=== PATIENT | female | born 1980 | race Caucasian/White ===

== ENCOUNTER 2016-10-12 14:24 | Emergency (ER) | payer OTHER ==
[~2016-10-12] VITALS: Ht 162.6 cm; Wt 57.2 kg
[~2016-10-12 14:24] MED LIST: ABIL2TAB2 PO; LITH150C PO; SUBO2MIS SL; VIST25CA PO
[2016-10-12 14:35] VITALS: BP 119/81; PULSE 75; RESP 16; TEMP 98.3; O2SAT 98
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
[2016-10-12] MEDS ORDERED: VIST50CA PO (14:51)
[2016-10-12] MEDS ORDERED: LURA20TA PO (14:51)
[2016-10-12] MEDS ORDERED: ACETAMINOPHEN 500 MG CPLT PO ONE (15:00)
[2016-10-12] MEDS ORDERED: ONDANSETRON ODT 4 MG TAB PO ONE (15:00)
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
[2016-10-12] MEDS ORDERED: EXTR500C PO (16:35)
[2016-10-12] MEDS ORDERED: IBUP800T23 PO (16:35)
[2016-10-12] MEDS ORDERED: ORPH100T99 PO (16:35)
== END 2016-10-12 16:43 | disposition home or self-care (01) ==
LOC: PHEFT 14:24
DX: S16.1XXA Strain of muscle, fascia and tendon at neck level, initial encounter (principal); F31.9 Bipolar disorder, unspecified; F32.9 Major depressive disorder, single episode, unspecified; F17.210 Nicotine dependence, cigarettes, uncomplicated; F14.10 Cocaine abuse, uncomplicated; V43.52XA Car driver injured in collision with other type car in traffic accident, initial encounter
CPT/HCPCS: 70450; 72125; 84703

== ENCOUNTER 2017-03-03 11:31 | Emergency (ER) | payer SELFPAY ==
[~2017-03-03] VITALS: Ht 162.6 cm; Wt 57.0 kg
[~2017-03-03 11:31] MED LIST changes: -ABIL2TAB2 PO; +EXTR500C PO; +IBUP800T23 PO; +LURA20TA PO; +ORPH100T99 PO; -SUBO2MIS SL; -VIST25CA PO; +VIST50CA PO
[2017-03-03 11:35] VITALS: BP 136/96; PULSE 73; RESP 12; TEMP 98.7; O2SAT 98
--- NOTE | 2017-03-03 11:43 | PD ---
Physical Exam Date Seen by Provider: Mar 03, 2017 Time Seen by Provider: 11:40 Narrative 36 yo female here for evaluation of possible mites to the eyelashes. Per patient she was seen at [place] and told this. Given permethrin for scabies. Wants a second opinion. Has not seen dermatology. Vitals are stable in triage. Awaiting bed placement. Data Data Last Documented VS Vital Signs Date Time Temp Pulse Resp B/P (MAP) Pulse Ox O2 Delivery O2 Flow Rate FiO2 03/03/17 11:35 98.7 73 12 136/96 (109) 98 MDM Medical Record Reviewed: Yes Supervised Visit with SAHIL: No Taz Martinez Mar 03, 2017 11:43
--- NOTE | 2017-03-03 12:25 | PD ---
HPI Chief Complaint: Skin Problem Time Seen by Provider: 12:13 Travel History International Travel<30 days: No Contact w/Intl Traveler<30days: No Traveled to known affect area: No History of Present Illness HPI 36-year-old female presents the emergency department with reports of "skin mites", and seen recently at [facility] and given topical ointment for scabies. Patient states it did not seem to work. She states she took a hot Epsom salt bath last night "mites" in the water. She is convinced that the mites, when she puts makeup on her face. She denies any other symptoms. She has no known drug allergies. PFSH Past Medical History Bipolar Disorder: Yes Depression: Yes Diminished Hearing: No ?: Not LMP: 2 months Social History Alcohol Use: No Tobacco Use: Yes Substance Use: Yes (HX OF DILAUDID/COCAINE) Allergies-Medications (Allergen,Severity, Reaction): Coded Allergies: No Known Allergies (Unverified , 10/12/16) Reported Meds & Prescriptions Reported Meds & Active Scripts Active Ivermectin 3 Mg Tab 23 Mg PO ONCE Orphenadrine CR (Orphenadrine Citrate) 100 Mg Tab 100 Mg PO Q12HR Ibuprofen 800 Mg Tab 800 Mg PO Q8H PRN Acetaminophen Extra Strength (Acetaminophen) 500 Mg Cap 1,000 Mg PO Q6H PRN Reported Latuda (Lurasidone) 20 Mg Tab 20 Mg PO DAILY Vistaril (Hydroxyzine Pamoate) 50 Mg Cap 50 Mg PO HS [place] Carbonate 150 Mg Cap 150 Mg PO QID Review of Systems Except as stated in HPI: all other systems reviewed are Neg General / Constitutional: No: Fever Eyes: No: Visual changes HENT: No: Headaches Cardiovascular: No: Chest Pain or Discomfort Respiratory: No: Shortness of Breath Gastrointestinal: No: Abdominal Pain Genitourinary: No: Dysuria Musculoskeletal: No: Pain Skin: No Rash Neurologic: No: Weakness Psychiatric: No: Depression Endocrine: No: Polydipsia Hematologic/Lymphatic: No: Easy Bruising Physical Exam Narrative GENERAL: Anxious. No acute distress. SKIN: Warm and dry. Normal color. Normal turgor. No visual mites or excoriations. HEAD: Atraumatic. Normocephalic. EYES: Pupils equal and round. No scleral icterus. No injection or drainage. ENT: No nasal bleeding or discharge. Mucous membranes pink and moist. NECK: Trachea midline. Supple. No lymphadenopathy. CARDIOVASCULAR: Regular rate and rhythm. RESPIRATORY: No accessory muscle use. Clear to auscultation. Breath sounds equal bilaterally. MUSCULOSKELETAL: Extremities without clubbing, cyanosis, or edema. No obvious deformities. NEUROLOGICAL: Awake and alert. No obvious cranial nerve deficits. Motor grossly within normal limits. Five out of 5 muscle strength in the arms and legs. Normal speech. PSYCHIATRIC: Appropriate mood and affect; insight and judgment normal. Data Data Last Documented VS Vital Signs Date Time Temp Pulse Resp B/P (MAP) Pulse Ox O2 Delivery O2 Flow Rate FiO2 03/03/17 11:35 98.7 73 12 136/96 (109) 98 MDM Medical Decision Making Medical Screen Exam Complete: Yes Emergency Medical Condition: Yes Differential Diagnosis Body lice. Pediculosis. Scabies. Narrative Course No visible mites are noted on today's exam. Patient is given ivermectin tabs. She is to take 200 mg once. Patient to repeat in 7 days. Patient is to clean the house as discussed. Patient follow with primary care physician if symptoms do not improve or worsen. Diagnosis Primary Impression: Scabies infestation Referrals: [facility] Primary Care Physician Patient Instructions: General Instructions, Scabies (ED) Additional Instructions: No visible mites are noted on today's exam. Patient is given ivermectin tabs. She is to take 200 mg once. Patient to repeat in 7 days. Patient is to clean the house as discussed. Patient follow with primary care physician if symptoms do not improve or worsen. Med/Other Pt SpecificInfo: Prescription(s) given Scripts Ivermectin (Ivermectin) 3 Mg Tab 23 MG PO ONCE, #8 TAB 1 Refill Prov: Christoph Mars MD 03/03/17 Disposition: 01 DISCHARGE HOME Condition: Stable Ulices Hinkle Mar 03, 2017 12:25
[2017-03-03] MEDS ORDERED: IVER5TAB PO (12:30)
== END 2017-03-03 12:50 | disposition home or self-care (01) ==
LOC: NEPD 11:31
DX: B86 Scabies (principal); F31.9 Bipolar disorder, unspecified; Z72.0 Tobacco use; Z79.899 Other long term (current) drug therapy
CPT/HCPCS: 99283

== ENCOUNTER 2017-06-12 08:26 | Emergency (ER) | payer SELFPAY ==
[~2017-06-12] VITALS: Ht 162.6 cm; Wt 57.0 kg
[~2017-06-12 08:26] MED LIST changes: +IBUP1TAB7 PO; -IBUP800T23 PO; +IVER5TAB PO; +ORPH100T2 PO; -ORPH100T99 PO
[2017-06-12 08:29] VITALS: BP 168/97; PULSE 90; RESP 14; TEMP 97.7; O2SAT 98
[2017-06-12] MEDS ORDERED: IVER5TAB PO (08:51)
[2017-06-12] MEDS ORDERED: VIST50CA PO (08:51)
--- NOTE | 2017-06-12 08:54 | PD ---
HPI Chief Complaint: Skin Problem Time Seen by Provider: 08:44 Travel History International Travel<30 days: No Contact w/Intl Traveler<30days: No Traveled to known affect area: No History of Present Illness HPI 37-year-old female presents the emergency department with generalized pruritus and reports of skin mites. This been going on for several weeks. Patient has similar presentation in February seen by myself at that time. Time the patient was treated with ivermectin which she states worked well. She feels that there might to getting into her chimney in her house. Patient is convinced she can see these. She does have a history of bipolar disorder with history of hallucinations in the past. Patient has no other complaints. No known drug allergies. PFSH Past Medical History Bipolar Disorder: Yes Depression: Yes Diminished Hearing: No ?: Not LMP: 2 months Social History Alcohol Use: No Tobacco Use: Yes Substance Use: Yes (HX OF DILAUDID/COCAINE) Allergies-Medications (Allergen,Severity, Reaction): Coded Allergies: No Known Allergies (Unverified , 10/12/16) Reported Meds & Prescriptions Reported Meds & Active Scripts Active Ivermectin 3 Mg Tab 23 Mg PO ONCE Vistaril (Hydroxyzine Pamoate) 50 Mg Cap 50 Mg PO HS Orphenadrine CR (Orphenadrine Citrate) 100 Mg Tab 100 Mg PO Q12HR Ibuprofen 800 Mg Tab 800 Mg PO Q8H PRN Acetaminophen Extra Strength (Acetaminophen) 500 Mg Cap 1,000 Mg PO Q6H PRN Reported Latuda (Lurasidone) 20 Mg Tab 20 Mg PO DAILY [place] Carbonate 150 Mg Cap 150 Mg PO QID Review of Systems Except as stated in HPI: all other systems reviewed are Neg General / Constitutional: No: Fever Eyes: No: Visual changes HENT: No: Headaches Cardiovascular: No: Chest Pain or Discomfort Respiratory: No: Shortness of Breath Gastrointestinal: No: Abdominal Pain Genitourinary: No: Dysuria Musculoskeletal: No: Pain Skin: Positive Rash, Positive Itching, Positive Dryness Neurologic: No: Weakness Psychiatric: No: Depression Endocrine: No: Polydipsia Hematologic/Lymphatic: No: Easy Bruising Physical Exam Narrative GENERAL: Patient appears in no acute distress. SKIN: Warm and dry. No obvious rash or mites are noted. HEAD: Atraumatic. Normocephalic. EYES: Pupils equal and round. No scleral icterus. No injection or drainage. ENT: No nasal bleeding or discharge. Mucous membranes pink and moist. NECK: Trachea midline. Supple and nontender. CARDIOVASCULAR: Regular rate and rhythm. RESPIRATORY: No accessory muscle use. Clear to auscultation. Breath sounds equal bilaterally. GASTROINTESTINAL: Abdomen soft, non-tender, nondistended. Hepatic and splenic margins not palpable. MUSCULOSKELETAL: Extremities without clubbing, cyanosis, or edema. No obvious deformities. NEUROLOGICAL: Awake and alert. No obvious cranial nerve deficits. Motor grossly within normal limits. Five out of 5 muscle strength in the arms and legs. Normal speech. PSYCHIATRIC: Appropriate mood and affect; insight and judgment normal. Data Data Last Documented VS Vital Signs Date Time Temp Pulse Resp B/P (MAP) Pulse Ox O2 Delivery O2 Flow Rate FiO2 06/12/17 08:30 16 06/12/17 08:29 97.7 90 168/97 (120) 98 Orders Orders Ed Discharge Order (06/12/17 08:54) [facility] Medical Decision Making Medical Screen Exam Complete: Yes Emergency Medical Condition: Yes Medical Record Reviewed: Yes Differential Diagnosis Pruritus. Scabies. Rash. Narrative Course Patient states previous treatment worked well in February. Patient is given ivermectin 3 mg, she is going to take 8 tablets once and repeat in 2 weeks. Patient also given Vistaril 50 mg to take at bedtime as needed for itch. Patient should follow with her primary care physician to ensure clearance. Diagnosis Primary Impression: Pruritus Additional Impression: Scabies Referrals: Primary Care Physician Patient Instructions: General Instructions, Scabies (ED) Additional Instructions: Patient is given ivermectin 3 mg, she is going to take 8 tablets once and repeat in 2 weeks. Patient also given Vistaril 50 mg to take at bedtime as needed for itch. Patient should follow with her primary care physician to ensure clearance. Scripts Ivermectin (Ivermectin) 3 Mg Tab 23 MG PO ONCE, #8 TAB 1 Refill Prov: Blayne Almaraz MD 06/12/17 Hydroxyzine Pamoate (Vistaril) 50 Mg Cap 50 MG PO HS, #20 CAP 0 Refills Prov: Blayne Almaraz MD 06/12/17 Disposition: 01 DISCHARGE HOME Condition: Stable Ulices Hinkle Jun 12, 2017 08:54
== END 2017-06-12 09:11 | disposition home or self-care (01) ==
LOC: NEPD 08:26
DX: B86 Scabies (principal)
CPT/HCPCS: 99284

== ENCOUNTER 2017-09-28 01:00 | Emergency (ER) | payer SELFPAY ==
[~2017-09-28] VITALS: Ht 162.6 cm; Wt 60.0 kg
[2017-09-28 01:20] VITALS: BP 136/87; PULSE 94; RESP 16; TEMP 98.6; O2SAT 99
[2017-09-28] MEDS ORDERED: IVER5TAB PO (02:58)
--- NOTE | 2017-09-28 03:03 | PD ---
HPI Chief Complaint: Medical Clearance Time Seen by Provider: 02:46 Travel History International Travel<30 days: No Contact w/Intl Traveler<30days: No Traveled to known affect area: No History of Present Illness HPI 37-year-old white female presents emergency department requesting treatment for possible mites. She states that she has been here for the same problem in the past. Symptoms are moderate. Alleviated by ivermectin. PFSH Past Medical History Bipolar Disorder: Yes Depression: Yes Diminished Hearing: No ?: Not Past Surgical History Surgical History: No Previous Surgery Social History Alcohol Use: Yes Tobacco Use: Yes Substance Use: Yes (HX OF DILAUDID/COCAINE) Allergies-Medications (Allergen,Severity, Reaction): Coded Allergies: No Known Allergies (Unverified Adverse Reaction, Unknown, 09/28/17) Reported Meds & Prescriptions Reported Meds & Active Scripts Active Ivermectin 3 Mg Tab 23 Mg PO ONCE Vistaril (Hydroxyzine Pamoate) 50 Mg Cap 50 Mg PO HS Orphenadrine CR (Orphenadrine Citrate) 100 Mg Tab 100 Mg PO Q12HR Ibuprofen 800 Mg Tab 800 Mg PO Q8H PRN Acetaminophen Extra Strength (Acetaminophen) 500 Mg Cap 1,000 Mg PO Q6H PRN Reported Latuda (Lurasidone) 20 Mg Tab 20 Mg PO DAILY [place] Carbonate 150 Mg Cap 150 Mg PO QID Review of Systems Except as stated in HPI: all other systems reviewed are Neg Physical Exam Narrative GENERAL: This is a well-nourished, well-developed patient, in no apparent distress. SKIN: No rashes, ecchymoses or lesions. Warm and dry. HEAD: Atraumatic. Normocephalic. EYES: PERRL, EOMI, no discharge or injection. No scleral icterus. EARS: Clear NOSE: Nasal turbinates appear normal. THROAT: Mucosa pink and moist. Airway patent. NECK: Trachea midline. supple, moves head freely. LUNGS: Clear to auscultation. CV: Regular in rhythm. ABDOMEN: Soft nontender. EXT: No clubbing cyanosis or edema. Data Data Last Documented VS Vital Signs Date Time Temp Pulse Resp B/P (MAP) Pulse Ox O2 Delivery O2 Flow Rate FiO2 09/28/17 01:20 98.6 94 16 136/87 (103) 99 Orders Orders Ed Discharge Order (09/28/17 02:58) [facility] Medical Decision Making Medical Screen Exam Complete: Yes Emergency Medical Condition: Yes Medical Record Reviewed: Yes Differential Diagnosis MDM: High Differential diagnoses: Abscess, folliculitis, cellulitis, lymphangitis, abrasion, contact dermatitis, mites, formication Narrative Course Patient's exam is unremarkable. I have agreed to give her ivermectin which she was been prescribed in the past. Diagnosis Primary Impression: Formication Patient Instructions: General Instructions Additional Instructions: Rest. Medications as directed. Follow-up with your doctor in 1 week. Med/Other Pt SpecificInfo: Prescription(s) given Scripts Ivermectin (Ivermectin) 3 Mg Tab 23 MG PO ONCE, #8 TAB 1 Refill Prov: Rosa Maria Gayle MD 09/28/17 Disposition: 01 DISCHARGE HOME Condition: Stable Jed Uriostegui Sep 28, 2017 03:03
== END 2017-09-28 03:23 | disposition home or self-care (01) ==
LOC: NEPD 01:00
DX: R20.2 Paresthesia of skin (principal); F31.9 Bipolar disorder, unspecified; Z79.899 Other long term (current) drug therapy; Z72.0 Tobacco use
CPT/HCPCS: 99283

== ENCOUNTER 2017-12-26 06:06 | Emergency (ER) | payer SELFPAY ==
[~2017-12-26] VITALS: Ht 162.6 cm; Wt 58.0 kg
[2017-12-26 06:08] VITALS: BP 141/74; PULSE 85; RESP 20; TEMP 98.4; O2SAT 100
[2017-12-26] MEDS ORDERED: METH40TA PO (06:13)
--- NOTE | 2017-12-26 06:24 | PD ---
HPI Chief Complaint: Medical Clearance Time Seen by Provider: 06:14 Travel History International Travel<30 days: No Contact w/Intl Traveler<30days: No Traveled to known affect area: No History of Present Illness HPI 37-year-old white female presents emergency department with complaints of lice and skin mites. This is a patient who I have seen in the past. She has had multiple evaluations in the past for the similar type presentation. Patient suffers from substance abuse and mental health issues. Symptoms are moderate. No alleviating factors. Exacerbated by mental health and substance abuse PFSH Past Medical History Bipolar Disorder: Yes Depression: Yes Diminished Hearing: No ?: Not Social History Alcohol Use: Yes Tobacco Use: Yes Substance Use: Yes (HX OF DILAUDID/COCAINE) Allergies-Medications (Allergen,Severity, Reaction): Coded Allergies: No Known Allergies (Unverified Adverse Reaction, Unknown, 12/26/17) Reported Meds & Prescriptions Reported Meds & Active Scripts Active Vistaril (Hydroxyzine Pamoate) 50 Mg Cap 50 Mg PO HS Reported Methadone (Methadone HCl) 40 Mg Tab 110 Mg PO DAILY Latuda (Lurasidone) 20 Mg Tab 20 Mg PO DAILY Hooker Carbonate 150 Mg Cap 150 Mg PO QID Review of Systems Except as stated in HPI: all other systems reviewed are Neg Physical Exam Narrative GENERAL: Well-developed, well-nourished in no acute distress. Nontoxic appearing. HEAD: Normocephalic, atraumatic. I see no lice, mites or evidence of any infestation. EYES: Pupils equal round and reactive. Extraocular motions intact. No scleral icterus. No injection or drainage. ENT: TMs clear without erythema. The external auditory canals clear. Nose: clear . Posterior pharynx is pink and moist. No tonsillar edema or exudate. Uvula midline. Airway patent. NECK: Trachea midline.Supple, nontender, moves head freely. No central bony tenderness or spasm. CARDIOVASCULAR: Regular rate and rhythm without murmurs, gallops, or rubs. RESPIRATORY: Clear to auscultation. Breath sounds equal bilaterally. No wheezes , rales, or rhonchi. GASTROINTESTINAL: Abdomen soft, non-tender, nondistended. No hepato-splenomegaly , or palpable masses. No guarding. EXTREMITIES: No clubbing, cyanosis, or edema. No joint tenderness, effusion, or edema noted. BACK: Nontender without deformity or crepitance. No flank tenderness. Data Data Last Documented VS Vital Signs Date Time Temp Pulse Resp B/P (MAP) Pulse Ox O2 Delivery O2 Flow Rate FiO2 12/26/17 06:08 98.4 85 20 141/74 (96) 100 [facility] Medical Decision Making Medical Screen Exam Complete: Yes Emergency Medical Condition: No Medical Record Reviewed: Yes Differential Diagnosis MDM: High Differential diagnoses: Abscess, folliculitis, cellulitis, lymphangitis, abrasion, contact dermatitis, mites, lice, formication Narrative Course A medical screening exam was performed: At the time of evaluation the presenting medical condition was determined not to be of an emergent nature. The patient was given the option of receiving additional care, but declined. Patient was given options for additional community resources from which to obtain care. The Patient Has Been advised to seek medical attention for their presenting complaint. The patient has been advised to return to the ER at any time if an emergent condition develops. Diagnosis Primary Impression: Encounter for medical screening examination Condition: Stable Jed Uriostegui Dec 26, 2017 06:24
== END 2017-12-26 06:28 | disposition left against medical advice (07) ==
LOC: NEPD 06:06
DX: F31.9 Bipolar disorder, unspecified (principal); F19.10 Other psychoactive substance abuse, uncomplicated; Z86.59 Personal history of other mental and behavioral disorders; Z72.0 Tobacco use
CPT/HCPCS: 99281